=== PATIENT | female | born 1950 | race African-American/Black ===

== ENCOUNTER 2018-04-13 09:26 | Outpatient (CLI) | payer OTHER | END 2018-04-13 21:56 | disposition home or self-care (01) | LOC: RAD 09:26 | DX: Z12.31 Encounter for screening mammogram for malignant neoplasm of breast (principal) ==

== ENCOUNTER 2019-05-04 09:22 | Outpatient (CLI) | payer OTHER | END 2019-05-04 20:05 | disposition home or self-care (01) | LOC: MAMMO 09:22 | DX: Z12.31 Encounter for screening mammogram for malignant neoplasm of breast (principal) ==

== ENCOUNTER 2021-03-17 21:00 | Emergency (ER) | payer OTHER ==
[~2021-03-17] VITALS: Ht 156.8 cm; Wt 83.9 kg
[2021-03-17 21:51] LABS: PLATELET COUNT 298 K/uL (152-353)
[2021-03-17 21:59] LABS: SODIUM 137 mmol/L (136-145)
[2021-03-17 22:11] LABS: PARTIAL THROMBOPLASTIN TIME 24.7 SECONDS (24.5-33.6)
[2021-03-17 22:35] VITALS: BP 159/54; TEMP 98.8
== END 2021-03-17 22:35 | disposition home or self-care (01) ==
LOC: ED 21:00
PROVIDERS: Hospitalist
DX: R07.89 Other chest pain (principal); W18.39XA Other fall on same level, initial encounter; Y92.89 Other specified places as the place of occurrence of the external cause
CPT/HCPCS: 36415; 80053; 82550; 83880; 84484; 85027; 85610; 85730; 93005; 96374; 96375; 99284; J1885; J2270; J2405

== ENCOUNTER 2021-10-31 11:27 | Outpatient (CLI) | payer OTHER | END 2021-10-31 21:06 | disposition home or self-care (01) | LOC: RAD 11:27 | PROVIDERS: ATTEND Nurse Practitioner Family | DX: Z13.820 Encounter for screening for osteoporosis (principal); N95.8 Other specified menopausal and perimenopausal disorders ==

== ENCOUNTER 2021-11-15 10:18 | Outpatient (CLI) | payer OTHER | END 2021-11-15 19:53 | disposition home or self-care (01) | LOC: RAD 10:18 | PROVIDERS: ATTEND Nurse Practitioner Family | DX: M25.561 Pain in right knee (principal) ==